=== PATIENT | female | born 1930 | race Caucasian/White ===

== ENCOUNTER 2018-12-10 10:18 | Emergency (ER) | payer OTHER ==
[~2018-12-10] VITALS: Ht 162.6 cm; Wt 58.1 kg
[~2018-12-10 10:18] MED LIST: GLU500 PO; LEVO25TA2 PO
[2018-12-10 10:27] VITALS: BP_SYST 160
[2018-12-10] MEDS ORDERED: HYDROcodone/ACETAMIN 7.5-325 MG TAB PO ONE (11:00)
[2018-12-10 12:35] VITALS: BP_SYST 152
== END 2018-12-10 12:35 | disposition home or self-care (01) ==
LOC: SED 10:18
DX: S52.591A Other fractures of lower end of right radius, initial encounter for closed fracture (principal); E11.9 Type 2 diabetes mellitus without complications; Z79.899 Other long term (current) drug therapy; W01.0XXA Fall on same level from slipping, tripping and stumbling without subsequent striking against object, initial encounter; Y93.89 Activity, other specified; Y92.89 Other specified places as the place of occurrence of the external cause; Y99.8 Other external cause status
CPT/HCPCS: 73030; 73564; 99283

== ENCOUNTER 2019-01-05 20:07 | Emergency (ER) | payer OTHER ==
[~2019-01-05] VITALS: Ht 152.4 cm; Wt 54.4 kg
[2019-01-05 20:25] VITALS: BP_SYST 155
[2019-01-05 21:21] VITALS: BP_SYST 155
== END 2019-01-05 21:21 | disposition home or self-care (01) ==
LOC: SED 20:07
DX: Z46.89 Encounter for fitting and adjustment of other specified devices (principal); E11.9 Type 2 diabetes mellitus without complications; Z79.899 Other long term (current) drug therapy
CPT/HCPCS: 99281